=== PATIENT | male | born 1950 | race Caucasian/White ===

== ENCOUNTER → 2020-07-11 | Outpatient (CLI) | payer MEDICARE ==
[~2020-07-11] MED LIST: ASCO100018 PO; CALC-229 PO; HYDR-3622 PO; MULT-449 PO; SAW1CAPS PO; TADA5TAB2 PO; [UNRECOGNIZED DRUG - OTHER] PO
[2020-07-11 13:36] LABS: MICROSCOPIC NOT IND
[2020-07-11 13:37] LABS: BASOPHILS % (AUTO) 1 % (0-1); EOSINOPHILS % (AUTO) 10 % (1-7); LYMPHOCYTES % (AUTO) 34 % (22-44); MEAN CORPUSCULAR HEMOGLOBIN 30.1 pg (27.5-34.5); MEAN CORPUSCULAR HGB CONC 33.8 g/dL (33.2-36.2); MEAN PLATELET VOLUME 7.3 fL (7.4-10.4); MONOCYTES % (AUTO) 9 % (2-9); NEUTROPHILS % (AUTO) 47 % (42-75); PLATELET COUNT 383 x10^3/uL (130-400); RED BLOOD COUNT 4.81 x10^6/uL (4.38-5.82); RED CELL DISTRIBUTION WIDTH 14.4 % (9.4-14.8)
[2020-07-11 13:40] LABS: MD NO
[2020-07-11 13:42] LABS: INTERNATIONAL NORMALIZED RATIO 0.96 (0.93-1.1); PROTHROMBIN TIME 10.2 Seconds (9.6-11.5)
[2020-07-11 13:43] LABS: ANION GAP 4 mmol/L (5-15); CALCIUM 9.2 mg/dL (8.5-10.1); CHLORIDE 106 mmol/L (98-107); CREATININE 0.82 mg/dL (0.7-1.3)
== END | disposition home or self-care (01) ==
LOC: EDSEX 11:42 → STAR 11:42
PROVIDERS: ATTEND Neurological Surgery
DX: Z01.810 Encounter for preprocedural cardiovascular examination (principal); Z01.811 Encounter for preprocedural respiratory examination; Z01.812 Encounter for preprocedural laboratory examination; M51.36 Other intervertebral disc degeneration, lumbar region; R79.1 Abnormal coagulation profile; R82.90 Unspecified abnormal findings in urine; R94.31 Abnormal electrocardiogram [ECG] [EKG]; R00.1 Bradycardia, unspecified; M41.85 Other forms of scoliosis, thoracolumbar region; Z20.828 Contact with and (suspected) exposure to other viral communicable diseases
CPT/HCPCS: 36415; 71046; 80048; 81003; 85025; 85610; 85730; 87635; 93005

== ENCOUNTER 2020-07-19 05:17 | Day surgery (SDC) | payer MEDICARE ==
[~2020-07-19] VITALS: Ht 172.7 cm; Wt 72.6 kg
[2020-07-19 06:09] VITALS: BP 126/74
[2020-07-19] MEDS ORDERED: BUPIVACAINE/PF 0.5% ONE (06:14)
[2020-07-19] MEDS ORDERED: BACITRACIN 50,000 UNIT ONE (06:14)
[2020-07-19] MEDS ORDERED: VANCOMYCIN 1,000 MG ONE (06:14)
[2020-07-19] MEDS ORDERED: EPINEPHRINE 1 MG/ML, 1ML ONE (06:14)
[2020-07-19] MEDS ORDERED: CHLORHEXIDINE 15 ML UDC MM ONE (06:30)
[2020-07-19] MEDS ORDERED: LACTATED RINGERS 1,000 ML IV SCH (06:30)
[2020-07-19] MEDS ORDERED: MIDAZOLAM 1 MG/ML, 2ML ONE (06:50)
[2020-07-19] MEDS ORDERED: PROPOFOL 10 MG/ML, 20ML ONE (07:05)
[2020-07-19] MEDS ORDERED: SUCCINYLCHOLINE 20 MG/ML, 10ML ONE (07:05)
[2020-07-19] MEDS ORDERED: ROCURONIUM 10MG/ML,5ML ONE (07:05)
[2020-07-19] MEDS ORDERED: ONDANSETRON 2MG/ML, 2ML ONE (07:05)
[2020-07-19] MEDS ORDERED: DEXAMETHASONE 4 MG/ML, 1ML ONE (07:05)
[2020-07-19] MEDS ORDERED: GLYCOPYRROLATE 0.2MG/1ML, 5ML ONE (07:05)
[2020-07-19] MEDS ORDERED: CEFAZOLIN 1,000 MG ONE (07:05)
[2020-07-19] MEDS ORDERED: FENTANYL PF 250 MCG/5ML ONE (07:39)
[2020-07-19] MEDS ORDERED: ACETAMINOPHEN 325 MG TABLET PO PRN (08:30)
[2020-07-19] MEDS ORDERED: MEPERIDINE/PF 25MG/0.5ML IVPush PRN (08:30)
[2020-07-19] MEDS ORDERED: MIDAZOLAM 1 MG/ML, 2ML IV PRN (08:30)
[2020-07-19] MEDS ORDERED: PROMETHAZINE 12.5 MG SUPP PR PRN (08:30)
[2020-07-19] MEDS ORDERED: HYDROmorphone 1 MG/ML, 1ML INJ IVPush PRN (08:30)
[2020-07-19] MEDS ORDERED: EPHEDRINE 50 MG/ML, 1ML IVPush PRN (08:30)
[2020-07-19] MEDS ORDERED: hydrALAzine 20 MG/ML, 1ML IV PRN (08:30)
[2020-07-19] MEDS ORDERED: LABETALOL 5MG/ML, 20ML IV PRN (08:30)
[2020-07-19] MEDS ORDERED: FENTANYL PF 100 MCG/2ML IV PRN (08:30)
[2020-07-19] MEDS ORDERED: ONDANSETRON 2MG/ML, 2ML IVPush PRN (08:30)
[2020-07-19] MEDS ORDERED: OXYcodone 5 MG/5 ML ORAL.SOL UDC PO PRN (08:30)
[2020-07-19] MEDS ORDERED: ALBUTEROL SULFATE 2.5 MG/3 ML NPPB PRN (08:30)
[2020-07-19] MEDS ORDERED: DIPHENHYDRAMINE 50 MG/ML, 1ML IVPush PRN (08:30)
[2020-07-19] MEDS ORDERED: PROMETHAZINE 25 MG/ML, 1ML IVPush PRN (08:30)
[2020-07-19] MEDS ORDERED: DIAZEPAM 5 MG/ML, 2ML IVPush PRN (08:30)
[2020-07-19] MEDS ORDERED: METHOCARBAMOL 1,000 MG in DEXTROSE 5% 100 ML IV PRN (10:00)
== END 2020-07-19 10:45 | disposition home or self-care (01) ==
LOC: EDSEX → OUT 05:17
PROVIDERS: ATTEND Neurological Surgery
DX: M51.16 Intervertebral disc disorders with radiculopathy, lumbar region (principal); Z20.828 Contact with and (suspected) exposure to other viral communicable diseases; M51.17 Intervertebral disc disorders with radiculopathy, lumbosacral region; M48.061 Spinal stenosis, lumbar region without neurogenic claudication; M48.07 Spinal stenosis, lumbosacral region; M47.26 Other spondylosis with radiculopathy, lumbar region; M41.86 Other forms of scoliosis, lumbar region; M46.1 Sacroiliitis, not elsewhere classified; E78.5 Hyperlipidemia, unspecified; J44.9 Chronic obstructive pulmonary disease, unspecified; N40.0 Benign prostatic hyperplasia without lower urinary tract symptoms; Z79.891 Long term (current) use of opiate analgesic; Z79.899 Other long term (current) drug therapy; Z88.8 Allergy status to other drugs, medicaments and biological substances
CPT/HCPCS: 63030; 63035; 72100; 87635; J0171; J0330; J0690; J1100; J2250; J2405; J2704; J3010; J3370